=== PATIENT | female | born 1990 | race American Indian/Alaskan Native ===

== ENCOUNTER 2022-02-02 11:27 | Emergency (ER) | payer SELFPAY ==
[2022-02-02 11:54] VITALS: BP 130/70
== END 2022-02-02 14:14 | disposition left against medical advice (07) ==
LOC: ED 11:27
DX: J34.89 Other specified disorders of nose and nasal sinuses (principal); Z53.21 Procedure and treatment not carried out due to patient leaving prior to being seen by health care provider; Y08.89XA Assault by other specified means, initial encounter; Y93.89 Activity, other specified; Y92.89 Other specified places as the place of occurrence of the external cause; Y99.8 Other external cause status